=== PATIENT | female | born 1955 | race Caucasian/White ===

== ENCOUNTER → 2016-07-04 12:54 | Emergency (ER) | payer MEDICARE | END | disposition left against medical advice (07) | LOC: ED 12:54 | DX: Z91.81 History of falling (principal); Z53.21 Procedure and treatment not carried out due to patient leaving prior to being seen by health care provider ==

== ENCOUNTER 2016-07-04 15:50 | Emergency (ER) | payer MEDICARE ==
[2016-07-04 16:42] VITALS: BP 123/69
--- NOTE | 2016-07-04 18:12 | RAD ---
Indication: Back pain, hip pain. 5 views lumbar spine demonstrate vertebral bodies to be normal in height. Disc spaces all well-preserved. Pedicles appear intact. IMPRESSION: No fracture of lumbar spine is noted.
--- NOTE | 2016-07-04 18:13 | RAD ---
Indication: Right hip pain. 2 views of the right hip including an AP view the pelvis demonstrates pelvic ring to be intact. No fracture is identified. Joint spaces all well-preserved. IMPRESSION: No fracture of the right hip is present.
[2016-07-04] MEDS ORDERED: traMADol TAB* 50 MG PO ONE (18:35)
--- NOTE | 2016-08-01 20:56 | UC ---
Mynor Gonzalez Aidan, scribed for Cary Real MD on 07/04/16 at 1734 . Truncal Trauma HPI - HPI Summary HPI Summary: 61 y/o female presents to the Urgent Care with a complaint of acute, constant, mild (1/10) right buttock pain that resulted from a syncopal event that occurred on June 27 at 0200. On June 26, she had a procedure and was given [place], which she believes may have lowered her blood pressure. On July 01, she was evaluated and told she had a bruise. Since then, her buttock pain has gotten worse. Pt denies any tingling in the legs, hematochezia, or diarrhea, however, she had constipation when she was on [place] (though she no longer takes Dunstable). Lastly, she has not fallen since June 27. - History Of Current Complaint Chief Complaint: UCBackPain Stated Complaint: POSS TAILBONE INJURY Time Seen by Provider: 07/04/16 16:46 Hx Obtained From: Patient ?: No Onset/Duration: Sudden Onset, Lasting Days, Still Present Severity Initially: Mild Severity Currently: Mild Pain Intensity: 1 - pain has worsened since onset Pain Scale Used: 0-10 Numeric Mechanism Of Injury: Fall From A Standing Position Aggravating Factor(s): Nothing - unknown Alleviating factor(s): Nothing - unknown Associated Signs And Symptoms: Positive: Negative - Pt had constipation while On Dun[place], but does not currently - Allergies/Home Medications Allergies/Adverse Reactions: Allergies Allergy/AdvReac Type Severity Reaction Status Date / Time Iodinated Diagnostic Agents Allergy Mild Hives Verified 07/26/16 23:59 Iohexol [From Omnipaque] Allergy Mild Hives Verified 07/26/16 23:59 Clarithromycin [From Biaxin] AdvReac Intermediate TACHYCARDIC Verified 07/26/16 23:59 Hydrocodone AdvReac Intermediate See Comment Verified 07/26/16 23:59 Hydromorphone [From Dilaudid] AdvReac Intermediate low blood Verified 07/26/16 20:53 pressure Trazodone AdvReac Mild Dizziness Verified 07/26/16 23:59 PMH/Surg Hx/FS Hx/Imm Hx Endocrine History Of: Denies: Diabetes Cardiovascular History Of: Denies: Hypertension, Pacemaker/ICD Respiratory History Of: Denies: Asthma GI/ History Of: Denies: Renal Disease Psychological History Of: Reports: Anxiety, Depression Cancer History Of: Denies: Breast Cancer - Surgical History Surgical History: Yes Surgery Procedure, Year, and Place: ORTHOGNATHIC SURGERY [place], 1983, [place] TONSILECTOMY 1962, [facility] S[facility]A THERAPY, [place],(VARICOSE VEINS) 2007 ENDOMETRIAL BX, 2004 CERVICAL PERFERATION, [facility], HYSTERECTOMY- DUE TO ENDOMETRIAL CANCER. 03/01,CHEMO PORT PLACEMENT. 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 Lives: With Family Alcohol Use: None Substance Use Type: Prescribed Substance Use Comment - Amount & Last Used: xanax Smoking Status (MU): Never Smoked Tobacco Have You Smoked in the Last Year: No - Immunization History Most Recent Influenza Vaccination: 2013 Most Recent Tetanus Shot: unknown Most Recent Pneumonia Vaccination: never Review of Systems Constitutional: Negative Skin: Negative Eyes: Negative ENT: Negative Respiratory: Negative Cardiovascular: Negative Gastrointestinal: Negative Genitourinary: Negative Motor: Negative Neurovascular: Negative Musculoskeletal: Arthralgia - right buttock pain Neurological: Negative Psychological: Negative All Other Systems Reviewed And Are Negative: Yes Physical Exam Triage Information Reviewed: Yes Appearance: Well-Nourished Vital Signs: Initial Vital Signs Temp 97.4 F 07/04/16 16:36 Pulse 75 07/04/16 16:36 Resp 18 07/04/16 16:36 BP 123/69 07/04/16 16:36 Pulse Ox 99 07/04/16 16:36 Vital Signs Reviewed: Yes Eye Exam: Normal ENT Exam: Normal Neck exam: Normal Respiratory Exam: Normal, Other - no dyspnea or tachypnea Cardiovascular Exam: Normal Cardiovascular: Positive: Brisk Capillary Refill, Other: - heart rate regular, good general skin color Abdominal Exam: Normal Abdomen Description: Positive: Nontender, No Organomegaly, Soft Bowel Sounds: Positive: Present Musculoskeletal Exam: Normal Musculoskeletal: Positive: Strength Intact, Edema @ - mild bilateral pitting edema, Other: - pain over right ischium that extends mid posterior thigh, no bowl or bladder leak, no hematochezia, distal sensation light touch present, mild bilateral pitting edema, pulses DP/PT 2+ equal bilat., DTRs: Patellar Achilles 2-3+ equal, no clonus appreciated Neurological Exam: Normal, Other - grossly intact, nonfocal Psychological Exam: Normal, Other - responds appropriately and easily Skin Exam: Normal, Other - no visible or reported rash Diagnostics - Radiology RIGHT HIP X-RAY Xray Interpretation: No Acute Changes - IMPRESSION: no fracture of the right hip is appreciated Radiology Interpretation Completed By: Radiologist LUMBAR SPINE X-RAY Xray Interpretation: No Acute Changes - IMPRESSION: No fracture of the lumbar spine is noted. Radiology Interpretation Completed By: Radiologist Truncal Trauma Course/Dx - Course Course Of Treatment: No new problems in CCC. Reviewed s/sx and need for f/u. Likely combination of contusion, sciatica. Questions answered to the best of my ability. - Differential Dx/Diagnosis Provider Diagnoses: Contusion buttock. Sciatica Discharge - Discharge Plan Condition: Stable Disposition: HOME Patient Education Materials: Sciatica (ED), Contusion in Adults (ED) Referrals: Hallie Lara MD [Primary Care Provider] - Additional Instructions: Follow up with Dr. Gutierrze - call on Thursday to schedule an appointment for this week. Seek medical attention sooner for worse or new problems in the meantime. The documentation as recorded by the Mynor solis Aidan accurately reflects the service I personally performed and the decisions made by me, Cary Real MD.
== END 2016-07-04 18:54 | disposition home or self-care (01) ==
LOC: UCEAST 15:50
DX: S30.0XXA Contusion of lower back and pelvis, initial encounter (principal); X58.XXXA Exposure to other specified factors, initial encounter; Y93.9 Activity, unspecified; Y92.9 Unspecified place or not applicable; M54.31 Sciatica, right side; F41.9 Anxiety disorder, unspecified; F32.9 Major depressive disorder, single episode, unspecified; Z88.1 Allergy status to other antibiotic agents; Z88.5 Allergy status to narcotic agent; Z91.041 Radiographic dye allergy status
CPT/HCPCS: 72110; 99212; A9270-GY; G0463

== ENCOUNTER 2016-07-16 21:58 | Emergency (ER) | payer MEDICARE ==
--- NOTE | 2016-07-17 00:30 | ED ---
dillon Gonzalez Timothy, scribed for Vernon Ayers MD on 07/16/16 at 2314 . GI/ HPI - HPI Summary HPI Summary: Britta Almaraz is a 61 yo female presenting to [facility] with constipation and 2/10 abd pain. for the past 3 days. Her last BM was 3 days ago. She has self- medicated with stool softeners and enema with mild relief. She states the enema removed some hard, dry stool. She has a CT a/P scheduled for 07/17/16. She starts chemotherapy 07/18/16. Her MHx includes palpitations, powerport surgery, hysterectomy, arthritis, spinal cerebellar ataxia, uterine CA with radiation/ chemotherapy, lyme disease, panic disorder, depression. - History of Current Complaint Chief Complaint: EDAbdPain Time Seen by Provider: 07/16/16 23:11 Stated Complaint: CONSTIPATED Hx Obtained From: Patient Onset/Duration: Started Days Ago, Still Present Timing: Constant Severity: Moderate Current Severity: Moderate Pain Intensity: 2 Location of Pain: Diffuse Associated Signs and Symptoms: Positive: Constipation - Allergy/Home Medications Allergies/Adverse Reactions: Allergies Allergy/AdvReac Type Severity Reaction Status Date / Time Clarithromycin [From Biaxin] Allergy TACHYCARDIC Verified 07/16/16 23:10 Hydrocodone Allergy See Comment Verified 07/16/16 23:10 Iodinated Diagnostic Agents Allergy Hives Verified 07/16/16 23:10 Iohexol [From Omnipaque] Allergy Hives Verified 07/16/16 23:10 Trazodone Allergy Dizziness Verified 07/16/16 23:10 Hydromorphone [From Dilaudid] AdvReac Intermediate low blood Verified 07/16/16 23:10 pressure PMH/Surg Hx/FS Hx/Imm Hx Endocrine/Hematology History: Denies: Hx Diabetes Cardiovascular History: Denies: Hx Hypertension, Hx Pacemaker/ICD, Other Cardiovascular Problems/ Disorders Respiratory History: Denies: Hx Asthma, Other Respiratory Problems/Disorders GI History: Denies: Other GI Disorders History: Denies: Hx Dialysis, Hx Renal Disease Musculoskeletal History: Reports: Hx Arthritis - R Shoulder and R Hip, Hx Back Problems - Low Back, Other Musculoskeletal History - Spinal Cerebellar Ataxia Sensory History: Reports: Hx Contacts or Glasses Denies: Hx Hearing Aid Opthamlomology History: Reports: Hx Contacts or Glasses Psychiatric History: Reports: Hx Anxiety, Hx Depression, Hx Panic Disorder - will give her, Other Psychiatric Issues/Disorders - Claustrophobic - Cancer History Cancer Type, Location and Year: 2014 Uterine. 2016 Breast Hx Chemotherapy: Yes Hx Radiation Therapy: Yes - Surgical History Surgery Procedure, Year, and Place: ORTHOGNATHIC SURGERY [place], 1984, [place] [facility] 1963, [facility]Y, [place],(VARICOSE VEINS) 2007 ENDOMETRIAL BX, 2004 CERVICAL PERFERATION, [facility], HYSTERECTOMY- DUE TO ENDOMETRIAL CANCER. 03/01,CHEMO PORT PLACEMENT. 05/26/16 - US GUIDED BREAST BIOPSY - RIGHT FOLLOWED BY BIOPSY CLIP,lumpectomy,sentinal node biopsy.\ Hx Anesthesia Reactions: No Infectious Disease History: No Infectious Disease History: Denies: Traveled Outside the [place] in Last 30 Days - Family History Known Family History: Positive: Cardiac Disease, Hypertension Negative: Diabetes - Social History Alcohol Use: None Substance Use Type: Reports: Prescribed Substance Use Comment - Amount & Last Used: xanax Smoking Status (MU): Never Smoked Tobacco Have You Smoked in the Last Year: No Review of Systems Constitutional: Negative Eyes: Negative ENT: Negative Cardiovascular: Negative Respiratory: Negative Positive: Other - constipation Genitourinary: Negative Musculoskeletal: Negative Skin: Negative Neurological: Negative Psychological: Normal All Other Systems Reviewed And Are Negative: Yes Physical Exam Triage Information Reviewed: Yes Vital Signs On Initial Exam: Initial Vitals Temp Pulse Resp BP Pulse Ox 97.7 F 86 20 130/73 97 07/16/16 22:05 07/16/16 22:05 07/16/16 22:05 07/16/16 22:05 07/16/16 22:05 Vital Signs Reviewed: Yes Appearance: Positive: No Pain Distress, Thin Skin: Positive: Warm Head/Face: Positive: Normal Head/Face Inspection Eyes: Positive: MAYRA ENT: Positive: Hearing grossly normal Neck: Positive: Supple Respiratory/Lung Sounds: Positive: Breath Sounds Present Cardiovascular: Positive: RRR Abdomen Description: Positive: Nontender, Soft. Negative: Distended, Guarding Bowel Sounds: Positive: Present Musculoskeletal: Positive: Strength/ROM Intact Neurological: Positive: Alert, Oriented to Person Place, Time Psychiatric: Positive: Affect/Mood Appropriate - Jason Coma Scale Coma Scale Total: 15 Diagnostics - Vital Signs Vital Signs Temp Pulse Resp BP Pulse Ox 07/16/16 22:07 97.7 F 86 20 130/73 97 07/16/16 22:05 97.7 F 86 20 130/73 97 - Laboratory Lab Statement: Any lab studies that have been ordered have been reviewed, and results considered in the medical decision making process. - Radiology Abd Xray Interpretation: Positive (See Comments) - constipation Radiology Interpretation Completed By: ED Physician Re-Evaluation - Re-Evaluation First Eval Change: Improved - pt had good result after enema and mag citrate GIGU Course/Dx - Course Assessment/Plan: Britta Almaraz is a 61 yo female presenting to [facility] with constipation for the past 3-4 days, beginning chemotherapy 07/18/16. She has a CT A/P scheduled for tomorrow. In the Ed course she received magnesium citrate. Her abd XR suggests constipation. After clinical examination and review of her lab and imaging studies, she will be discharged home with constipation with appropriate instructions. - Diagnoses Differential Diagnoses - Female: Constipation Provider Diagnoses: Constipation Discharge - Discharge Plan Condition: Improved Disposition: HOME Patient Education Materials: Constipation (ED) Referrals: Hallie Lara MD [Primary Care Provider] - 2 Days Additional Instructions: Please follow up with your primary care physician regarding your visit to the emergency department today. Return to the emergency department with any new or recurring symptoms. The documentation as recorded by the dillon solis Timothy accurately reflects the service I personally performed and the decisions made by me, Vernon Ayers MD.
[2016-07-17] MEDS ORDERED: Magnesium CITRATE* 300 ML BTL PO ONE (00:32)
[2016-07-17 01:54] VITALS: BP 123/69
--- NOTE | 2016-07-17 07:36 | RAD ---
HISTORY: Constipation COMPARISONS: June 09, 2015 VIEWS: Frontal views of the abdomen. FINDINGS: BOWEL: There is a nonspecific bowel gas pattern, with nondilated small bowel gas noted. There is a large amount of stool within the colon. CALCULI: There are no abnormal calculi. BONES AND SOFT TISSUES: There are no osseous abnormalities. OTHER FINDINGS: The lung bases are clear. There is no subphrenic gas. IMPRESSION: NONSPECIFIC BOWEL GAS PATTERN.. LARGE AMOUNT OF STOOL THROUGHOUT THE COLON
== END 2016-07-17 01:52 | disposition home or self-care (01) ==
LOC: ED 21:58
DX: K59.00 Constipation, unspecified (principal); M19.011 Primary osteoarthritis, right shoulder; M16.11 Unilateral primary osteoarthritis, right hip; F41.9 Anxiety disorder, unspecified; F32.9 Major depressive disorder, single episode, unspecified; Z85.42 Personal history of malignant neoplasm of other parts of uterus; F41.0 Panic disorder [episodic paroxysmal anxiety]; Z85.3 Personal history of malignant neoplasm of breast; Z90.710 Acquired absence of both cervix and uterus; Z88.1 Allergy status to other antibiotic agents; Z88.5 Allergy status to narcotic agent; Z91.041 Radiographic dye allergy status
CPT/HCPCS: 74000; 99282; A9270-GY

== ENCOUNTER 2016-07-26 20:45 | Inpatient (IN) | payer MEDICARE ==
[2016-07-26] MEDS ORDERED: NS 0.9% 1000 ML* 2,000 ML IV ONE (20:55)
--- NOTE | 2016-07-26 22:00 | RAD ---
HISTORY: Fever, chemotherapy COMPARISONS: August 18, 2014 VIEWS: 2: Frontal and lateral views of the chest. FINDINGS: CARDIOMEDIASTINAL SILHOUETTE: The cardiomediastinal silhouette is normal. JANET: The janet are normal. PLEURA: The costophrenic angles are sharp. No pleural abnormalities are noted. LUNG PARENCHYMA: There is patchy alveolar opacification of the right lung base ABDOMEN: The upper abdomen is clear. There is no subphrenic gas. BONES AND SOFT TISSUES: No bone or soft tissue abnormalities are noted. OTHER: A right-sided chest port is noted with the tip overlying the superior vena cava IMPRESSION: MILD RIGHT BASILAR AIRSPACE DISEASE WHICH MAY REPRESENT ATELECTASIS VERSUS EARLY CONSOLIDATION
[2016-07-26 22:29] LABS: Hematocrit 33 % (35-47); Mean Corpuscular HGB Conc 34 g/dl (31-36); Mean Corpuscular Hemoglobin 31 pg (27-31); Mean Corpuscular Volume 93 fL (80-97); Mean Platelet Volume 8 um3 (7.4-10.4); Red Blood Count 3.53 10^6/ul (4.0-5.4); Red Cell Distribution Width 12 % (10.5-15); White Blood Count 0.5 10^3/ul (3.5-10.8)
[2016-07-26 22:34] LABS: Albumin 3.9 g/dL (3.2-5.2); BUN/Creatinine Ratio 13.3 (8-20); C Reactive Protein 30.46 mg/L (< 5.00); Calcium 9.4 mg/dL (8.6-10.3); EGFR African American 100.7 (>60); EGFR Non-African American 78.3 (>60); Globulin 2.5 g/dL (2-4); Potassium 3.6 mmol/L (3.5-5.0); Total Bilirubin 0.6 mg/dL (0.2-1.0); Total Protein 6.4 g/dL (6.4-8.9)
[2016-07-26 22:36] LABS: Add Diff/Slide Review? Manual Diff Added; Comments Flag Yes
[2016-07-26 22:37] LABS: Urine Bilirubin Negative (Negative); Urine Glucose Negative (Negative); Urine Nitrite Negative (Negative)
[2016-07-26] MEDS ORDERED: Acetaminophen TAB* 325 MG PO ONE (22:46)
[2016-07-26] MEDS ORDERED: Cefepime(*) 2 GM in NS 0.9% 50 ML* 50 ML IVPB ONE (22:46)
[2016-07-26 23:14] LABS: Add Path Review? YES; Eosinophils % 6 % (0-6); Immature Granulocytes 5 % (0-9); Neutrophil % 32 % (38-83); RBC Morphology Normal (Normal); Reactive Lymph % 1 % (0-6); Toxic Granulation 1+
--- NOTE | 2016-07-26 23:24 | HP ---
H&P (Free Text) History and Physical: PCP: Aditya Lara MD Oncology: Josefa Vila MD Date/Time of Evaluation: 07/26/2016 2305 CC: fever HPI: Mrs Almaraz is a 61YO female recently diagnosed with breast CA who had her first round of chemoTX a week ago last Thursday. The next day she received Neulasta. She was doing reasonably well until Thursday when she developed malaise in the morning lasting all day. She decided to check her temperature this evening finding it to be 101.8F. She called her oncologist's office who advised her to present to [facility] for evaluation the results of which revealed an ANC of 200 and a CXR suggesting an early RLL pneumonia. PMedHx spinocerebellar ataxia breast CA on TX HX endometrial CA Ambulatory Orders Nursing to reconcile. ALPRAZolam TAB* [Xanax TAB*] 0.25 mg PO TID PRN 08/17/14 Dihydroxyaluminum Sod Carb [Rolaids] 334 mg PO DAILY 01/15/15 Hypromellose (Ophth) [Systane Overnight Therapy] 0.3 % OP Q6HR PRN 01/15/15 Ibuprofen TAB* [Advil TAB*] 400 mg PO Q6H PRN 01/17/15 Allergies Clarithromycin [From Biaxin] Allergy (Verified 07/26/16 20:53) TACHYCARDIC Hydrocodone Allergy (Verified 07/26/16 20:53) See Comment lower blood pressure Iodinated Diagnostic Agents Allergy (Verified 07/26/16 20:53) Hives and heart palpitations Iohexol [From Omnipaque] Allergy (Verified 07/26/16 20:53) Hives AND PALPITATIONS Trazodone Allergy (Verified 07/26/16 20:53) Dizziness PT STATES "I JUST DON'T TOLERATE IT WELL" Hydromorphone [From Dilaudid] Adverse Reaction (Intermediate, Verified 07/26/16 20:53) low blood pressure PSurgHx tonsillectomy breast lumpectomy port placement hysterectomy w/ WICK SocHx: no tobacco, alcohol, or recreational drug HX; lives with her ; full code status FamHx: Mother: colon CA; Father: CAD ROS: as above, otherwise reviewed and all were negative Constitutional: NAD, normally developed, well-nourished white female vitals: Vital Signs Temp 38.7 C 07/26/16 21:13 Pulse 95 07/26/16 21:13 Resp 20 07/26/16 21:13 BP 116/59 07/26/16 21:13 Pulse Ox 99 07/26/16 21:13 Intake & Output 07/25/16 07/26/16 07/26/16 23:59 11:59 23:59 Weight 55.792 kg HEENM: atraumatic; chemoTX allopecia; sclera/conjunctiva: non-icteric/clear; hearing: clinically intact; oropharynx: clear, mucosa moist Neck: soft tissue: non-tender, no nuchal rigidity; thyroid: normal Pulmonary: clear to auscultation bilaterally, good aeration, no accessory muscle use CV: RR/RR, normal S1S2, no carotid bruit, no jugular venous distention, 2+ B DP/ PT, no edema Abdominal: soft, non-distended, non-tender, no rebound/guarding/rigidity, normoactive bowel sounds, no hepatosplenomegaly or masses, no costovertebral angle tenderness Musculoskeletal: general: grossly intact; gait: stable Integumental: normal appearance and texture Psychiatric orientation: AA&O to PPS affect: calm mood: pleasant eye contact: good content: reliable responses: timely insight: good Testing: Lab Results 07/26/16 07/26/16 07/26/16 Range/Units 22:00 22:00 22:00 WBC 0.5 L (3.5-10.8) 10^3/ul RBC 3.53 L (4.0-5.4) 10^6/ul Hgb 11.0 L (12.0-16.0) g/dl Hct 33 L (35-47) % MCV 93 (80-97) fL MCH 31 (27-31) pg MCHC 34 (31-36) g/dl RDW 12 (10.5-15) % Plt Count 94 L (150-450) 10^3/ul MPV 8 (7.4-10.4) um3 Immature Gran % (Auto) 5 (0-9) % Absolute Neuts (auto) 0.2 L* (1.5-7.7) 10^3/ul Absolute Lymphs (auto) 0.2 L (1.0-4.8) 10^3/ul Absolute Monos (auto) 0.1 (0-0.8) 10^3/ul Absolute Eos (auto) 0 (0-0.6) 10^3/ul Absolute Basos (auto) 0 (0-0.2) 10^3/ul Absolute Nucleated RBC 0 10^3/ul Neutrophils % 32 L (38-83) % Band Neutrophils % 5 (0-8) % Lymphocytes % 38 (25-47) % Reactive Lymphs % 1 (0-6) % Monocytes % 14 H (0-13) % Eosinophils % 6 (0-6) % Basophils % 4 H (0-2) % Toxic Granulation 1+ Normal RBC Morphology Normal (Normal) Hem Pathologist Commnt Pending INR (Anticoag Therapy) 1.02 (0.89-1.11) APTT 31.9 (26.0-36.3) seconds Sodium 134 (133-145) mmol/L Potassium 3.6 (3.5-5.0) mmol/L Chloride 103 (101-111) mmol/L Carbon Dioxide 25 (22-32) mmol/L Anion Gap 6 (2-11) mmol/L BUN 10 (6-24) mg/dL Creatinine 0.75 (0.51-0.95) mg/dL Est GFR ( Amer) 100.7 (>60) Est GFR (Non-Af Amer) 78.3 (>60) BUN/Creatinine Ratio 13.3 (8-20) Glucose 99 (70-100) mg/dL Lactic Acid (0.5-2.0) mmol/L Calcium 9.4 (8.6-10.3) mg/dL Total Bilirubin 0.60 (0.2-1.0) mg/dL AST 10 L (13-39) U/L ALT 9 (7-52) U/L Alkaline Phosphatase 69 (34-104) U/L Troponin I 0.00 (<0.04) ng/mL C-Reactive Protein 30.46 H (< 5.00) mg/L Total Protein 6.4 (6.4-8.9) g/dL Albumin 3.9 (3.2-5.2) g/dL Globulin 2.5 (2-4) g/dL Albumin/Globulin Ratio 1.6 (1-3) Urine Color Urine Appearance Urine pH (5-9) Ur Specific Chambers (1.010-1.030) Urine Protein (Negative) Urine Ketones (Negative) Urine Blood (Negative) Urine Nitrate (Negative) Urine Bilirubin (Negative) Urine Urobilinogen (Negative) Ur Leukocyte Esterase (Negative) Urine Glucose (Negative) 07/26/16 07/26/16 Range/Units 22:00 22:14 WBC (3.5-10.8) 10^3/ul RBC (4.0-5.4) 10^6/ul Hgb (12.0-16.0) g/dl Hct (35-47) % MCV (80-97) fL MCH (27-31) pg MCHC (31-36) g/dl RDW (10.5-15) % Plt Count (150-450) 10^3/ul MPV (7.4-10.4) um3 Immature Gran % (Auto) (0-9) % Absolute Neuts (auto) (1.5-7.7) 10^3/ul Absolute Lymphs (auto) (1.0-4.8) 10^3/ul Absolute Monos (auto) (0-0.8) 10^3/ul Absolute Eos (auto) (0-0.6) 10^3/ul Absolute Basos (auto) (0-0.2) 10^3/ul Absolute Nucleated RBC 10^3/ul Neutrophils % (38-83) % Band Neutrophils % (0-8) % Lymphocytes % (25-47) % Reactive Lymphs % (0-6) % Monocytes % (0-13) % Eosinophils % (0-6) % Basophils % (0-2) % Toxic Granulation Normal RBC Morphology (Normal) Hem Pathologist Commnt INR (Anticoag Therapy) (0.89-1.11) APTT (26.0-36.3) seconds Sodium (133-145) mmol/L Potassium (3.5-5.0) mmol/L Chloride (101-111) mmol/L Carbon Dioxide (22-32) mmol/L Anion Gap (2-11) mmol/L BUN (6-24) mg/dL Creatinine (0.51-0.95) mg/dL Est GFR ( Amer) (>60) Est GFR (Non-Af Amer) (>60) BUN/Creatinine Ratio (8-20) Glucose (70-100) mg/dL Lactic Acid 0.7 (0.5-2.0) mmol/L Calcium (8.6-10.3) mg/dL Total Bilirubin (0.2-1.0) mg/dL AST (13-39) U/L ALT (7-52) U/L Alkaline Phosphatase (34-104) U/L Troponin I (<0.04) ng/mL C-Reactive Protein (< 5.00) mg/L Total Protein (6.4-8.9) g/dL Albumin (3.2-5.2) g/dL Globulin (2-4) g/dL Albumin/Globulin Ratio (1-3) Urine Color Straw Urine Appearance Clear Urine pH 5.0 (5-9) Ur Specific Chambers 1.009 L (1.010-1.030) Urine Protein Negative (Negative) Urine Ketones Negative (Negative) Urine Blood Negative (Negative) Urine Nitrate Negative (Negative) Urine Bilirubin Negative (Negative) Urine Urobilinogen Negative (Negative) Ur Leukocyte Esterase Negative (Negative) Urine Glucose Negative (Negative) ECG, personally reviewed: NSR rate 100, T-wave inversions V1-3 with flattening in V4 CXR, personally reviewed: IMPRESSION: MILD RIGHT BASILAR AIRSPACE DISEASE WHICH MAY REPRESENT ATELECTASIS VERSUS EARLY CONSOLIDATION Impression: 61F HX presents with neutropenic fever w/ suspected source of RLL pneumonia DIAGNOSIS & PLAN Primary neutropenic fever : cefepime 2g IV Q8H : blood, sputum, & urine CXs : IVFs : neutropenic precautions : supportive care suspect RLL pneumonia : azithromycin IV for atypical coverage : supplemental oxygen Secondary breast CA on TX : continue management per oncology HX endometrial CA : no acute issues : HX hysterectomy w/ WICK Admission Rational: inpatient for neutropenic fever 2nd suspected RLL pneumonia in patient at high risk of mortality; inappropriate for outpatient setting DVTp: heparin SQ & SCDs Code Status: full HCP:
[2016-07-27] MEDS ORDERED: traMADol TAB* 50 MG PO PRN
[2016-07-27] MEDS ORDERED: CMCS: Melatonin (NF) 3 MG TAB PO PRN
[2016-07-27] MEDS ORDERED: Ondansetron INJ* 2 MG/ML VIAL IV PRN
[2016-07-27] MEDS: NS 0.9% 1000 ML* 1,000 ML IV SCH ×3 (01:10→18:02)
[2016-07-27] MEDS: Azithromycin IV(*) 500 MG in NS 0.9% 250 ML* 250 ML IVPB SCH (01:11)
--- NOTE | 2016-07-27 04:38 | ED ---
Cale Gonzalez Rebecca, scribed for Gabino Britton MD on 07/26/16 at 2145 . HPI Febrile Illness - HPI Summary HPI Summary: Pt is a 61 y/o F who presents to ED c/o fever and increased fatigue. 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 Sx aggravated and alleviated by nothing, has not taken any medication for the fever. Reports nausea and decreased appetite secondary to chemotherapy treatments. Denies abdominal pain, V, chills, myalgias, cough, rhinorrhea, sore throat and rashes. Denies pain around her port. Is not on any blood thinners. Currently has R breast CA and is undergoing chemotherapy, with her first treatment on the July, and the next on August 01. PSHx lumpectomy. Reports discussing current sx with Dr. Grimaldo today, who advised she be evaluated by the ED. - History of Current Complaint Chief Complaint: EDFever Hx Obtained From: Patient Onset/Duration: Started Hours Ago, Still Present Time of Onset: 18:00 Timing: Constant Temperature: 101.8 F - BATTERY CHECKER Current Severity: None Pain Intensity: 0 Pain Scale Used: 0-10 Numeric Aggravating Factors: Nothing Alleviating Factors: Nothing Associated Signs and Symptoms: Nausea, Other: - Increaed fatigue, decreased appetite - Allergy/Home Medications Allergies/Adverse Reactions: Allergies Allergy/AdvReac Type Severity Reaction Status Date / Time Iodinated Diagnostic Agents Allergy Mild Hives Verified 07/26/16 23:59 Iohexol [From Omnipaque] Allergy Mild Hives Verified 07/26/16 23:59 Clarithromycin [From Biaxin] AdvReac Intermediate TACHYCARDIC Verified 07/26/16 23:59 Hydrocodone AdvReac Intermediate See Comment Verified 07/26/16 23:59 Hydromorphone [From Dilaudid] AdvReac Intermediate low blood Verified 07/26/16 20:53 pressure Trazodone AdvReac Mild Dizziness Verified 07/26/16 23:59 PMH/Surg Hx/FS Hx/Imm Hx Endocrine/Hematology History: Denies: Hx Diabetes Cardiovascular History: Denies: Hx Hypertension, Hx Pacemaker/ICD, Other Cardiovascular Problems/ Disorders Respiratory History: Denies: Hx Asthma, Other Respiratory Problems/Disorders GI History: Denies: Other GI Disorders History: Denies: Hx Dialysis, Hx Renal Disease Musculoskeletal History: Reports: Hx Arthritis - R Shoulder and R Hip, Hx Back Problems - Low Back, Other Musculoskeletal History - Spinal Cerebellar Ataxia Sensory History: Reports: Hx Contacts or Glasses Denies: Hx Hearing Aid Opthamlomology History: Reports: Hx Contacts or Glasses Psychiatric History: Reports: Hx Anxiety, Hx Depression, Hx Panic Disorder - will give her, Other Psychiatric Issues/Disorders - Claustrophobic - Cancer History Cancer Type, Location and Year: 2014 Uterine. 2016 Breast Hx Chemotherapy: Yes - Current undergoing on chemotherapy Hx Radiation Therapy: Yes - Surgical History Surgery Procedure, Year, and Place: ORTHOGNATHIC SURGERY [place], 1983, [place] TONSILECTOMY 1962, [facility]A THERAPY, [place],(VARICOSE VEINS) 2007 ENDOMETRIAL BX, 2003 CERVICAL PERFERATION, [facility], HYSTERECTOMY- DUE TO ENDOMETRIAL CANCER. 03/01,CHEMO PORT PLACEMENT. 05/26/16 - US GUIDED BREAST BIOPSY - RIGHT FOLLOWED BY BIOPSY CLIP,lumpectomy,sentinal node biopsy.\\ Hx Anesthesia Reactions: No Infectious Disease History: No Infectious Disease History: Denies: Traveled Outside the [place] in Last 30 Days - Family History Known Family History: Positive: Cardiac Disease, Hypertension, Other - CA Negative: Diabetes - Social History Alcohol Use: None Substance Use Type: Reports: Prescribed Substance Use Comment - Amount & Last Used: xanax Smoking Status (MU): Never Smoked Tobacco Have You Smoked in the Last Year: No Review of Systems Positive: Fever, Fatigue, Other - Denies pain around port. Negative: Chills Negative: Sore Throat, Nasal Discharge Negative: Cough Positive: Nausea - secondary to chemotherapy. Negative: Abdominal Pain, Vomiting Negative: Myalgia Negative: Rash All Other Systems Reviewed And Are Negative: Yes Physical Exam - Summary Physical Exam Summary: The patient is well-nourished in no acute distress and in no acute pain. The skin is warm and dry and skin color reflects adequate perfusion. Good skin turgor. HEENT: The head is normocephalic and atraumatic. The pupils are equal and reactive. The conjunctivae are clear and without drainage. Nares are patent and without drainage. Mouth reveals moist mucous membranes and the throat is without erythema and exudate. The external ears are intact. The ear canals are patent and without drainage. The tympanic membranes are intact. Neck is supple with full range of motion and non-tender. There are no carotid bruits. There is no neck vein distension. Respiratory: Chest is non-tender. Lungs are clear to auscultation with no rales , ronchi or wheezing and breath sounds are symmetrical and equal. Cardiovascular: Hear is regular rate and rhythm. There is no murmur or rub auscultated. There is no peripheral edema and pulses are symmetrical and equal. Abdomen: The abdomen is soft and non-tender. There are normal bowel sounds heard in all four quadrants and there is no organomegaly palpated. Musculoskeletal: There is no back pain noted. Extremities are non-tender with full range of motion. There is good capillary refill of 2 seconds. There is no peripheral edema or calf tenderness elicited. Neurological: Patient is alert and oriented to person, place and time. The patient has symmetrical motor strength in all four extremities. Psychiatric: The patient has an appropriate affect and does not exhibit any anxiety or depression. Triage Information Reviewed: Yes Vital Signs On Initial Exam: Initial Vitals Temp Pulse Resp BP Pulse Ox 100.3 F 102 16 120/73 100 07/26/16 20:45 07/26/16 20:45 07/26/16 20:45 07/26/16 20:45 07/26/16 20:45 Vital Signs Reviewed: Yes Diagnostics - Vital Signs Vital Signs Temp Pulse Resp BP Pulse Ox 07/26/16 21:13 101.7 F 95 20 116/59 99 07/26/16 20:45 100.3 F 102 16 120/73 100 - Laboratory Lab Results: Lab Results 07/26/16 07/26/16 07/26/16 Range/Units 22:00 22:00 22:00 WBC 0.5 L (3.5-10.8) 10^3/ul RBC 3.53 L (4.0-5.4) 10^6/ul Hgb 11.0 L (12.0-16.0) g/dl Hct 33 L (35-47) % MCV 93 (80-97) fL MCH 31 (27-31) pg MCHC 34 (31-36) g/dl RDW 12 (10.5-15) % Plt Count 94 L (150-450) 10^3/ul MPV 8 (7.4-10.4) um3 Immature Gran % (Auto) 5 (0-9) % Absolute Neuts (auto) 0.2 L* (1.5-7.7) 10^3/ul Absolute Lymphs (auto) 0.2 L (1.0-4.8) 10^3/ul Absolute Monos (auto) 0.1 (0-0.8) 10^3/ul Absolute Eos (auto) 0 (0-0.6) 10^3/ul Absolute Basos (auto) 0 (0-0.2) 10^3/ul Absolute Nucleated RBC 0 10^3/ul Neutrophils % 32 L (38-83) % Band Neutrophils % 5 (0-8) % Lymphocytes % 38 (25-47) % Reactive Lymphs % 1 (0-6) % Monocytes % 14 H (0-13) % Eosinophils % 6 (0-6) % Basophils % 4 H (0-2) % Toxic Granulation 1+ Normal RBC Morphology Normal (Normal) Hem Pathologist Commnt Pending INR (Anticoag Therapy) 1.02 (0.89-1.11) APTT 31.9 (26.0-36.3) seconds Sodium 134 (133-145) mmol/L Potassium 3.6 (3.5-5.0) mmol/L Chloride 103 (101-111) mmol/L Carbon Dioxide 25 (22-32) mmol/L Anion Gap 6 (2-11) mmol/L BUN 10 (6-24) mg/dL Creatinine 0.75 (0.51-0.95) mg/dL Est GFR ( Amer) 100.7 (>60) Est GFR (Non-Af Amer) 78.3 (>60) BUN/Creatinine Ratio 13.3 (8-20) Glucose 99 (70-100) mg/dL Lactic Acid (0.5-2.0) mmol/L Calcium 9.4 (8.6-10.3) mg/dL Total Bilirubin 0.60 (0.2-1.0) mg/dL AST 10 L (13-39) U/L ALT 9 (7-52) U/L Alkaline Phosphatase 69 (34-104) U/L Troponin I 0.00 (<0.04) ng/mL C-Reactive Protein 30.46 H (< 5.00) mg/L Total Protein 6.4 (6.4-8.9) g/dL Albumin 3.9 (3.2-5.2) g/dL Globulin 2.5 (2-4) g/dL Albumin/Globulin Ratio 1.6 (1-3) Urine Color Urine Appearance Urine pH (5-9) Ur Specific [place] (1.010-1.030) Urine Protein (Negative) Urine Ketones (Negative) Urine Blood (Negative) Urine Nitrate (Negative) Urine Bilirubin (Negative) Urine Urobilinogen (Negative) Ur Leukocyte Esterase (Negative) Urine Glucose (Negative) 07/26/16 07/26/16 Range/Units 22:00 22:14 WBC (3.5-10.8) 10^3/ul RBC (4.0-5.4) 10^6/ul Hgb (12.0-16.0) g/dl Hct (35-47) % MCV (80-97) fL MCH (27-31) pg MCHC (31-36) g/dl RDW (10.5-15) % Plt Count (150-450) 10^3/ul MPV (7.4-10.4) um3 Immature Gran % (Auto) (0-9) % Absolute Neuts (auto) (1.5-7.7) 10^3/ul Absolute Lymphs (auto) (1.0-4.8) 10^3/ul Absolute Monos (auto) (0-0.8) 10^3/ul Absolute Eos (auto) (0-0.6) 10^3/ul Absolute Basos (auto) (0-0.2) 10^3/ul Absolute Nucleated RBC 10^3/ul Neutrophils % (38-83) % Band Neutrophils % (0-8) % Lymphocytes % (25-47) % Reactive Lymphs % (0-6) % Monocytes % (0-13) % Eosinophils % (0-6) % Basophils % (0-2) % Toxic Granulation Normal RBC Morphology (Normal) Hem Pathologist Commnt INR (Anticoag Therapy) (0.89-1.11) APTT (26.0-36.3) seconds Sodium (133-145) mmol/L Potassium (3.5-5.0) mmol/L Chloride (101-111) mmol/L Carbon Dioxide (22-32) mmol/L Anion Gap (2-11) mmol/L BUN (6-24) mg/dL Creatinine (0.51-0.95) mg/dL Est GFR ( Amer) (>60) Est GFR (Non-Af Amer) (>60) BUN/Creatinine Ratio (8-20) Glucose (70-100) mg/dL Lactic Acid 0.7 (0.5-2.0) mmol/L Calcium (8.6-10.3) mg/dL Total Bilirubin (0.2-1.0) mg/dL AST (13-39) U/L ALT (7-52) U/L Alkaline Phosphatase (34-104) U/L Troponin I (<0.04) ng/mL C-Reactive Protein (< 5.00) mg/L Total Protein (6.4-8.9) g/dL Albumin (3.2-5.2) g/dL Globulin (2-4) g/dL Albumin/Globulin Ratio (1-3) Urine Color Straw Urine Appearance Clear Urine pH 5.0 (5-9) Ur Specific [place] 1.009 L (1.010-1.030) Urine Protein Negative (Negative) Urine Ketones Negative (Negative) Urine Blood Negative (Negative) Urine Nitrate Negative (Negative) Urine Bilirubin Negative (Negative) Urine Urobilinogen Negative (Negative) Ur Leukocyte Esterase Negative (Negative) Urine Glucose Negative (Negative) Result Diagrams: 07/26/16 22:00 07/26/16 22:00 Lab Statement: Any lab studies that have been ordered have been reviewed, and results considered in the medical decision making process. - Radiology CXR Xray Interpretation: Positive (See Comments) - MILD RIGHT BASILAR AIRSPACE DISEASE WHICH MAY REPRESENT ATELECTASIS VERSUS EARLY CONSOLIDATION Radiology Interpretation Completed By: Radiologist - EKG 2302 Cardiac Rate: Tachycardia - 100 bpm EKG Rhythm: Sinus Tachycardia EKG Interpretation: T wave inversions in V1-V3 (new), no STEMI Re-Evaluation - Re-Evaluation First Eval Re-Evaluation Time: 22:50 Change: Unchanged Comment: Discussed current lab results and the plan with patient. Course/Dx - Course Assessment/Plan: Pt is a 61 y/o F who presents to ED c/o increased fatigue and fever which was 101.8 at home at 1800 tonight. Reports nausea and decreased appetite secondary to chemotherapy treatments. Denies abdominal pain, V, chills , myalgias, cough, rhinorrhea, sore throat and rashes. Denies pain around her port. Is not on any blood thinners. Currently has R breast CA and is undergoing chemotherapy. PSHx lumpectomy. CXR reveals "MILD RIGHT BASILAR AIRSPACE DISEASE WHICH MAY REPRESENT ATELECTASIS VERSUS EARLY CONSOLIDATION." EKG reveals sinus tachycardia with T wave inversions in V1-V3. Pt received Tylenol, Maxipime and Ns in the course of the ED. Discussed care of pt with Dr. Barragan ( hospitalist) who accepts pt for admission. Pt will be admitted with Dx of neutrpoenic sepsis. Critical care time of 30 minutes. - Febrile Illness Differential Diagnoses: Bacteremia, Fever of Unknown Origin, Pneumonia, Pyelonephritis, Other: - neutropenic sepsis - Diagnoses Provider Diagnoses: Neutropenic sepsis - Provider Notifications Discussed Care Of Patient With: Roderick Barragan Time Discussed With Above Provider: 22:53 Instructed by Provider To: Admit As Inpatient - Critical Care Time Critical Care Time: 30-74 min - 30 minutes Discharge - Discharge Plan Condition: Good Disposition: ADMITTED TO [facility] The documentation as recorded by the aCle solis Rebecca accurately reflects the service I personally performed and the decisions made by , Gabino Britton MD.
[2016-07-27] MEDS: Omeprazole CAP* 20 MG PO SCH ×2 (06:53→06:56)
[2016-07-27 06:56] LABS: Hematocrit 30 % (35-47); Mean Corpuscular HGB Conc 33 g/dl (31-36); Mean Corpuscular Hemoglobin 31 pg (27-31); Mean Corpuscular Volume 94 fL (80-97); Mean Platelet Volume 8 um3 (7.4-10.4); Red Blood Count 3.18 10^6/ul (4.0-5.4); Red Cell Distribution Width 12 % (10.5-15)
[2016-07-27 07:01] LABS: Comments Flag Yes
[2016-07-27 07:02] LABS: Add Diff/Slide Review? Slide Review Added
[2016-07-27] MEDS: Cefepime(*) 2 GM in NS 0.9% 50 ML* 50 ML IVPB SCH ×2 (08:03→16:04)
[2016-07-27] MEDS: Acetaminophen TAB* 325 MG PO PRN (08:12)
[2016-07-27] MEDS: Docusate CAP* 100 MG PO SCH ×2 (08:12→21:16)
[2016-07-27] MEDS: Bisacodyl EC TAB* 5 MG PO PRN (16:50)
[2016-07-28] MEDS: Cefepime(*) 2 GM in NS 0.9% 50 ML* 50 ML IVPB SCH ×3 (00:09→17:11)
[2016-07-28] MEDS: Azithromycin IV(*) 500 MG in NS 0.9% 250 ML* 250 ML IVPB SCH (01:20)
[2016-07-28] MEDS: Omeprazole CAP* 20 MG PO SCH (05:18)
[2016-07-28] MEDS ORDERED: Heparin VIAL(*) 5000 UNITS/ML VIAL (FIVE THOUSAND) SUBCUT SCH (06:00)
[2016-07-28 07:23] LABS: Calcium 9.3 mg/dL (8.6-10.3); EGFR African American 160.8 (>60); Potassium 3.7 mmol/L (3.5-5.0)
[2016-07-28] MEDS: Docusate CAP* 100 MG PO SCH ×2 (09:35→21:47)
[2016-07-28] MEDS: Bisacodyl EC TAB* 5 MG PO PRN (09:35)
[2016-07-28] MEDS: Acetaminophen TAB* 325 MG PO PRN (09:35)
[2016-07-28 11:15] LABS: Hematocrit 30 % (35-47); Mean Corpuscular HGB Conc 34 g/dl (31-36); Mean Corpuscular Hemoglobin 31 pg (27-31); Mean Corpuscular Volume 92 fL (80-97); Mean Platelet Volume 8 um3 (7.4-10.4); Red Blood Count 3.21 10^6/ul (4.0-5.4); Red Cell Distribution Width 12 % (10.5-15); White Blood Count 2.6 10^3/ul (3.5-10.8)
[2016-07-28 11:19] LABS: Comments Flag Yes
[2016-07-28 11:20] LABS: Add Diff/Slide Review? Manual Diff Added
[2016-07-28 11:52] LABS: Eosinophils % 1 % (0-6); Immature Granulocytes 7 % (0-9); Neutrophil % 61 % (38-83)
[2016-07-28 11:54] LABS: Reactive Lymph % 1 % (0-6)
[2016-07-28 11:55] LABS: Add Path Review? YES; RBC Morphology Normal (Normal)
[2016-07-28] MEDS: Heparin VIAL(*) 5000 UNITS/ML VIAL (FIVE THOUSAND) SUBCUT SCH ×2 (16:45→21:48)
[2016-07-28] MEDS: Polyethylene Glycol 3350* 17 GM PACKET PO PRN (17:11)
[2016-07-28] MEDS: NS 0.9% 1000 ML* 1,000 ML IV SCH (21:54)
[2016-07-29] MEDS: Cefepime(*) 2 GM in NS 0.9% 50 ML* 50 ML IVPB SCH ×3 (00:48→15:27)
[2016-07-29] MEDS: Acetaminophen TAB* 325 MG PO PRN (05:16)
[2016-07-29] MEDS: Heparin VIAL(*) 5000 UNITS/ML VIAL (FIVE THOUSAND) SUBCUT SCH ×2 (05:24→14:17)
[2016-07-29] MEDS: Omeprazole CAP* 20 MG PO SCH (05:24)
[2016-07-29 06:02] LABS: Hematocrit 28 % (35-47); Hemoglobin 9.4 g/dl (12.0-16.0); Mean Corpuscular HGB Conc 33 g/dl (31-36); Mean Corpuscular Hemoglobin 31 pg (27-31); Mean Corpuscular Volume 93 fL (80-97); Mean Platelet Volume 8 um3 (7.4-10.4); Red Blood Count 3.04 10^6/ul (4.0-5.4); Red Cell Distribution Width 12 % (10.5-15); White Blood Count 3.7 10^3/ul (3.5-10.8)
[2016-07-29 06:06] LABS: Add Diff/Slide Review? Manual Diff Added; Comments Flag Yes
[2016-07-29 06:25] LABS: Eosinophils % 1 % (0-6); Hypochromasia 1+; Immature Granulocytes 17 % (0-9); Metamyelocytes % 2 % (0-2); Myelocytes % 1 % (0-1); Neutrophil % 54 % (38-83); Promyelocytes % 1 %; Reactive Lymph % 1 % (0-6); Toxic Granulation 1+
[2016-07-29 06:26] LABS: Add Path Review? YES
[2016-07-29] MEDS: NS 0.9% 1000 ML* 1,000 ML IV SCH (06:29)
[2016-07-29] MEDS: Docusate CAP* 100 MG PO SCH (07:58)
[2016-07-29 10:22] VITALS: BP 98/46
[2016-07-29] MEDS: Polyethylene Glycol 3350* 17 GM PACKET PO PRN (15:28)
--- NOTE | 2016-07-29 15:28 | DS ---
CC: Dr. Lara * DISCHARGE SUMMARY: DATE OF ADMISSION: 07/26/16 DATE OF DISCHARGE: 07/29/16 DISCHARGE DIAGNOSES: 1. Neutropenic fever: Resolved, will discontinue off antibiotics as no growth in cultures. 2. Breast cancer: Will resume therapy on 08/01/16, consideration for dose reduction pending, continue Neulasta. 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 DISCHARGE MEDICATIONS: 1. Acetaminophen 650 mg p.o. q.6 hours p.r.n. fever/pain, call for fevers prior to taking. 2. Emend Tri-Pack as directed for chemotherapy. 3. Dulcolax 10 mg p.o. daily p.r.n. constipation. 4. Dexamethasone 4 mg p.o. as directed by chemo. 5. Docusate sodium mg p.o. b.i.d. 6. Melatonin 3 mg p.o. q.h.s. p.r.n. sleep. 7. Omeprazole 20 mg p.o. q.a.m. 8. Ondansetron 4 mg p.o. q.6 hours p.r.n. nausea. 9. MiraLax 17 g p.o. daily p.r.n. constipation. 10. Compazine 10 mg p.o. q.6 hours p.r.n. nausea. 11. Alprazolam 0.25 mg p.o. t.i.d. p.r.n. anxiety. 12. Rolaids 334 mg p.o. daily p.r.n. indigestion. 13. Hypromellose 0.3% ophthalmic overnight p.r.n. dry eyes. 14. Ibuprofen 400 mg p.o. q.6 hours p.r.n. pain. HOSPITAL COURSE: Please see admission note for full H and P; however, briefly, Ms. Almaraz is well known to our service due to her prior diagnosis of carcinosarcoma uterine cancer, completing therapy in 2013. She was recently diagnosed with a new lobular breast cancer and is started on dose dense AC2T. Cycle 1 day 1 was 07/18/16. She presented to the ER in the evening of 07/26/16 (day 8) as directed by the on-call oncologist due to a fever of 101.8 and malaise all day. In the ER, she had an ANC of 200 and the chest x-ray suggested an early right lower lobe pneumonia. On admission, she was given IV cefepime and pancultured. Within approximately 24 hour, Ms. Almaraz defervesced with no further fevers. By today, she is feeling much stronger and a lot better. Her ANC resolved by 07/28/16 to 1.8. She is mildly anemic with a normal platelet count at this time. Her cultures today have all been negative and she will be discharged following completion of her third day of IV antibiotics this afternoon. She will be discharged off antibiotics and will follow up in our office on 08/01/16, as previously planned for chemotherapy. Plan of care was discussed at length with Ms. Almaraz who states good understanding and denies further questions. Dr. Vila, her primary oncologist, is considering dose reduction. However, we will determine as we get closer to the date of treatment. Ms. Almaraz states understanding of plan for resumption with cycle 2 and continuing Neulasta. She denies further questions. TIME SPENT: Greater than 40 minutes spent with greater than 50% [id number] counseling. DRE BRYANT NP [id number]/[facility] #: [id number] MAGGIE
== END 2016-07-29 19:00 | disposition home or self-care (01) | DRG 194 ==
LOC: ED 20:45 → MED 22:52
PROVIDERS: ADMIT Hospitalist; ATTEND Internal Medicine Hematology & Oncology
DX: J18.9 Pneumonia, unspecified organism (principal); G11.1 Early-onset cerebellar ataxia; D70.9 Neutropenia, unspecified; C50.919 Malignant neoplasm of unspecified site of unspecified female breast; R50.81 Fever presenting with conditions classified elsewhere; Z85.42 Personal history of malignant neoplasm of other parts of uterus; Z79.1 Long term (current) use of non-steroidal anti-inflammatories (NSAID); Z79.899 Other long term (current) drug therapy; Z88.8 Allergy status to other drugs, medicaments and biological substances; Z80.0 Family history of malignant neoplasm of digestive organs; Z82.49 Family history of ischemic heart disease and other diseases of the circulatory system
CPT/HCPCS: 36415; 71020; 80048; 80053; 81003; 83605; 84484; 85025; 85060; 85610; 85730; 86140; 87040; 87899; 93005; 99232; 99239; A9270-GY; J0456; J0692; J1642; J1644

== ENCOUNTER 2016-11-27 17:42 | Emergency (ER) | payer MEDICARE ==
[2016-11-27 20:37] LABS: Hematocrit 33 % (35-47); Hemoglobin 11.5 g/dl (12.0-16.0); Mean Corpuscular HGB Conc 35 g/dl (31-36); Mean Corpuscular Hemoglobin 33 pg (27-31); Mean Corpuscular Volume 94 fL (80-97); Mean Platelet Volume 7 um3 (7.4-10.4); Red Blood Count 3.54 10^6/ul (4.0-5.4); Red Cell Distribution Width 13 % (10.5-15); White Blood Count 8.4 10^3/ul (3.5-10.8)
[2016-11-27 20:48] LABS: Albumin 3.8 g/dL (3.2-5.2); Calcium 9.2 mg/dL (8.6-10.3); EGFR African American 118.8 (>60); EGFR Non-African American 92.4 (>60); Globulin 2.2 g/dL (2-4); Potassium 3.8 mmol/L (3.5-5.0); Total Bilirubin 0.5 mg/dL (0.2-1.0)
--- NOTE | 2016-11-27 20:54 | RAD ---
Indication: Cough. Fever. Oncology patient. Comparison: No relevant prior exams available on the [facility] [place] [place] PACS for comparison. Technique: Upright AP 1815 hours Report: Probable surgical clips at the RIGHT breast. Clear lungs and pleural spaces. The heart, pulmonary vasculature, and mediastinal contours are unremarkable. No suspicious osseous lesions evident. IMPRESSION: No evidence for pneumonia. No evidence for mediastinal or hilar lymphadenopathy. No evidence for acute intrathoracic disease.
[2016-11-27 21:47] VITALS: BP 105/64
--- NOTE | 2016-11-28 22:04 | ED ---
Bj Gonzalez Angela, scribed for Olivia Norris MD on 11/27/16 at 1930 . Shortness of Breath - HPI Summary HPI Summary: This pt is a 61 y/o female accompanied by her [facility]/o [facility], scratchy throat, laryngitis since last night. Pt reports that she has breast CA and finished chemotherapy in September 2016. She notes that she had lumpectomy margins cleaned up and had her port removed yesterday. She states that her cough is aggravated when laying down. Pt describes she had productive cough with phlegm. Pt denies using tobacco, drug, or alcohol. She denies blurry vision, chest pain , SOB, ear ache, abd pain, back pain, bloody stools, hematuria, unexplained bruises or rash. - History of Current Complaint Chief Complaint: EDShortnessOfBreath Time Seen by Provider: 11/27/16 19:18 Hx Obtained From: Patient Onset/Duration: Lasting Hours Timing: Constant Aggrevating Factors: Recumbent Position Alleviating Factors: Upright Position Associated Signs & Symptoms: Cough (Productive) - Allergy/Home Medications Allergies/Adverse Reactions: Allergies Allergy/AdvReac Type Severity Reaction Status Date / Time Iodinated Diagnostic Agents Allergy Mild Hives Verified 07/26/16 23:59 Iohexol [From Omnipaque] Allergy Mild Hives Verified 07/26/16 23:59 Clarithromycin [From Biaxin] AdvReac Intermediate TACHYCARDIC Verified 07/26/16 23:59 Hydrocodone AdvReac Intermediate See Comment Verified 07/26/16 23:59 Hydromorphone [From Dilaudid] AdvReac Intermediate low blood Verified 07/26/16 20:53 pressure Trazodone AdvReac Mild Dizziness Verified 07/26/16 23:59 PMH/Surg Hx/FS Hx/Imm Hx Endocrine/Hematology History: Denies: Hx Diabetes Cardiovascular History: Denies: Hx Hypertension, Hx Pacemaker/ICD, Other Cardiovascular Problems/ Disorders Respiratory History: Denies: Hx Asthma, Other Respiratory Problems/Disorders GI History: Denies: Other GI Disorders History: Denies: Hx Dialysis, Hx Renal Disease Musculoskeletal History: Reports: Hx Arthritis - R Shoulder and R Hip, Hx Back Problems - Low Back, Other Musculoskeletal History - Spinal Cerebellar Ataxia Sensory History: Reports: Hx Contacts or Glasses Denies: Hx Hearing Aid Opthamlomology History: Reports: Hx Contacts or Glasses Psychiatric History: Reports: Hx Anxiety, Hx Depression, Hx Panic Disorder - will give her, Other Psychiatric Issues/Disorders - Claustrophobic - Cancer History Cancer Type, Location and Year: 2014 Uterine. 2017 Breast Hx Chemotherapy: Yes - Current undergoing on chemotherapy Hx Radiation Therapy: Yes - Surgical History Surgery Procedure, Year, and Place: ORTHOGNATHIC SURGERY [place], 1983, [place] TONSILECTOMY 1963, [facility] SCL[facility]A THERAPY, [place],(VARICOSE VEINS) 2007 ENDOMETRIAL BX, 2004 CERVICAL PERFERATION, [facility], HYSTERECTOMY- DUE TO ENDOMETRIAL CANCER. 03/01,CHEMO PORT PLACEMENT. 05/26/16 - US GUIDED BREAST BIOPSY - RIGHT FOLLOWED BY BIOPSY CLIP,lumpectomy,sentinal node biopsy.\ Hx Anesthesia Reactions: No Infectious Disease History: No Infectious Disease History: Denies: Traveled Outside the [place] in Last 30 Days - Family History Known Family History: Positive: Cardiac Disease, Hypertension, Other - CA Negative: Diabetes - Social History Alcohol Use: None Substance Use Type: Reports: Prescribed Substance Use Comment - Amount & Last Used: xanax Smoking Status (MU): Never Smoked Tobacco Have You Smoked in the Last Year: No Review of Systems Negative: Fever, Chills Negative: Blurred Vision Positive: Other - scratchy throat. Negative: Ear Ache Negative: Chest Pain Positive: Cough. Negative: Shortness Of Breath Negative: Abdominal Pain Genitourinary: Negative Negative: hematuria, other - bloody stools Negative: Rash, Bruising All Other Systems Reviewed And Are Negative: Yes Physical Exam Triage Information Reviewed: Yes Vital Signs On Initial Exam: Initial Vitals Temp Pulse Resp BP Pulse Ox 98.6 F 99 19 119/63 99 11/27/16 17:52 11/27/16 17:52 11/27/16 17:52 11/27/16 17:52 11/27/16 17:52 Vital Signs Reviewed: Yes Appearance: Positive: Well-Nourished Skin: Positive: Warm, Skin Color Reflects Adequate Perfusion, Dry, Other - The port was on the right infraclavicular area, there is no erythema, no drainage. To the right inferior lateral breast there is a surgical incision with mild ecchymosis. Wound is intact, not dehisced, not red, and not warm. Head/Face: Positive: Other - Pt has a cap on and has alopecia. ENT: Positive: Pharynx normal, TMs normal Neck: Positive: Supple, Nontender Respiratory/Lung Sounds: Positive: Clear to Auscultation, Breath Sounds Present Cardiovascular: Positive: Normal, RRR Abdomen Description: Positive: Nontender, Soft Musculoskeletal: Positive: Normal Neurological: Positive: Normal, Sensory/Motor Intact, Alert, Oriented to Person Place, Time Psychiatric: Positive: Normal Diagnostics - Vital Signs Vital Signs Temp Pulse Resp BP Pulse Ox 11/27/16 17:52 98.6 F 99 19 119/63 99 - Laboratory Lab Results: Lab Results 11/27/16 11/27/16 Range/Units 20:14 20:14 WBC 8.4 (3.5-10.8) 10^3/ul RBC 3.54 L (4.0-5.4) 10^6/ul Hgb 11.5 L (12.0-16.0) g/dl Hct 33 L (35-47) % MCV 94 (80-97) fL MCH 33 H (27-31) pg MCHC 35 (31-36) g/dl RDW 13 (10.5-15) % Plt Count 152 (150-450) 10^3/ul MPV 7 L (7.4-10.4) um3 Neut % (Auto) 88.9 H (38-83) % Lymph % (Auto) 5.2 L (25-47) % [place] % (Auto) 5.0 (1-9) % Eos % (Auto) 0.4 (0-6) % Baso % (Auto) 0.5 (0-2) % Absolute Neuts (auto) 7.5 (1.5-7.7) 10^3/ul Absolute Lymphs (auto) 0.4 L (1.0-4.8) 10^3/ul Absolute Monos (auto) 0.4 (0-0.8) 10^3/ul Absolute Eos (auto) 0 (0-0.6) 10^3/ul Absolute Basos (auto) 0 (0-0.2) 10^3/ul Absolute Nucleated RBC 0 10^3/ul Nucleated RBC % 0 Sodium 139 (133-145) mmol/L Potassium 3.8 (3.5-5.0) mmol/L Chloride 109 (101-111) mmol/L Carbon Dioxide 25 (22-32) mmol/L Anion Gap 5 (2-11) mmol/L BUN 13 (6-24) mg/dL Creatinine 0.65 (0.51-0.95) mg/dL Est GFR ( Amer) 118.8 (>60) Est GFR (Non-Af Amer) 92.4 (>60) BUN/Creatinine Ratio 20.0 (8-20) Glucose 97 (70-100) mg/dL Calcium 9.2 (8.6-10.3) mg/dL Total Bilirubin 0.50 (0.2-1.0) mg/dL AST 14 (13-39) U/L ALT 10 (7-52) U/L Alkaline Phosphatase 80 (34-104) U/L Total Protein 6.0 L (6.4-8.9) g/dL Albumin 3.8 (3.2-5.2) g/dL Globulin 2.2 (2-4) g/dL Albumin/Globulin Ratio 1.7 (1-3) Result Diagrams: 11/27/16 20:14 11/27/16 20:14 Lab Statement: Any lab studies that have been ordered have been reviewed, and results considered in the medical decision making process. - Radiology Chest XR Xray Interpretation: No Acute Changes - IMPRESSION: No evidence for pneumonia. No evidence for mediastinal or hilar lymphadenopathy. No evidence for acute intrathoracic disease. ED physician has reviewed this radiology report and agrees. Radiology Interpretation Completed By: Radiologist Re-Evaluation - Re-Evaluation First Eval Re-Evaluation Time: 21:15 Comment: I reviewed lab and XR results with the pt and . Course/Dx - Course Assessment/Plan: Pt is a 61 y/o female with breast CA (finished chemo on September 2016) presenting with cough, scratchy throat, laryngitis since last night. She notes that she had lumpectomy margins cleaned up and had her port removed yesterday. Lab work shows slight anemia. Chesmistry is good. Chest XR is negative. Pt will be discharged and is advised to follow up with her PCP. - Diagnoses Provider Diagnoses: Upper respiratory infection Discharge - Discharge Plan Condition: Stable Disposition: HOME Patient Education Materials: Upper Respiratory Infection (ED) Referrals: Hallie Lara MD [Primary Care Provider] - Additional Instructions: resume normal activity. It is important to follow up with your primary care physician in 2-3 days. take all medications as previously instructed. The documentation as recorded by the Bj solis Angela accurately reflects the service I personally performed and the decisions made by me, Olivia Norris MD.
== END 2016-11-27 21:46 | disposition home or self-care (01) ==
LOC: ED 17:42
DX: J06.9 Acute upper respiratory infection, unspecified (principal); C50.511 Malignant neoplasm of lower-outer quadrant of right female breast; M19.011 Primary osteoarthritis, right shoulder; M16.11 Unilateral primary osteoarthritis, right hip; G11.9 Hereditary ataxia, unspecified; F41.0 Panic disorder [episodic paroxysmal anxiety]; F32.9 Major depressive disorder, single episode, unspecified; F40.240 Claustrophobia; Z88.5 Allergy status to narcotic agent; Z88.1 Allergy status to other antibiotic agents; Z91.041 Radiographic dye allergy status
CPT/HCPCS: 36415; 71010; 80053; 85025; 99282

== ENCOUNTER → 2017-01-18 15:43 | Emergency (ER) | payer MEDICARE ==
[~2017-01-18 15:43] MED LIST: DOXYcycline CAP(*) 100 MG PO ONE
[2017-01-18 15:51] VITALS: BP 125/69
--- NOTE | 2017-01-18 15:55 | ED ---
Upper Extremity Pain - HPI Summary HPI Summary: 61F presents with tick bite on right arm. She noticed it today and it has probably been there since yesterday. She denies any fevers or rash. She did not try to take it out. She is currently taking chemo for breast CA. she is not allergic to doxycycline. - History of Current Complaint Chief Complaint: EDAnimalBite Stated Complaint: TICK ON RT ARM Time Seen by Provider: 01/18/17 15:52 - Allergies/Home Medications Allergies/Adverse Reactions: Allergies Allergy/AdvReac Type Severity Reaction Status Date / Time Iodinated Diagnostic Agents Allergy Mild Hives Verified 07/26/16 23:59 Iohexol [From Omnipaque] Allergy Mild Hives Verified 07/26/16 23:59 Clarithromycin [From Biaxin] AdvReac Intermediate TACHYCARDIC Verified 07/26/16 23:59 Hydrocodone AdvReac Intermediate See Comment Verified 07/26/16 23:59 Hydromorphone [From Dilaudid] AdvReac Intermediate low blood Verified 07/26/16 20:53 pressure Trazodone AdvReac Mild Dizziness Verified 07/26/16 23:59 PMH/Surg Hx/FS Hx/Imm Hx Endocrine/Hematology History: Denies: Hx Diabetes Cardiovascular History: Denies: Hx Hypertension, Hx Pacemaker/ICD, Other Cardiovascular Problems/ Disorders Respiratory History: Denies: Hx Asthma, Other Respiratory Problems/Disorders GI History: Denies: Other GI Disorders History: Denies: Hx Dialysis, Hx Renal Disease Musculoskeletal History: Reports: Hx Arthritis - R Shoulder and R Hip, Hx Back Problems - Low Back, Other Musculoskeletal History - Spinal Cerebellar Ataxia Sensory History: Reports: Hx Contacts or Glasses Denies: Hx Hearing Aid Opthamlomology History: Reports: Hx Contacts or Glasses Psychiatric History: Reports: Hx Anxiety, Hx Depression, Hx Panic Disorder - will give her, Other Psychiatric Issues/Disorders - Claustrophobic - Cancer History Cancer Type, Location and Year: 2014 Uterine. 2016 Breast Hx Chemotherapy: Yes - Current undergoing on chemotherapy Hx Radiation Therapy: Yes - Surgical History Surgery Procedure, Year, and Place: ORTHOGNATHIC SURGERY [place], 1983, [place] TONSILECTOMY 1962, [facility] [facility], [place],(VARICOSE VEINS) 2007 ENDOMETRIAL BX, 2004 CERVICAL PERFERATION, [facility], HYSTERECTOMY- DUE TO ENDOMETRIAL CANCER. 03/01,CHEMO PORT PLACEMENT. 05/26/16 - US GUIDED BREAST BIOPSY - RIGHT FOLLOWED BY BIOPSY CLIP,lumpectomy,sentinal node biopsy.\ Hx Anesthesia Reactions: No Infectious Disease History: No Infectious Disease History: Denies: Traveled Outside the [place] in Last 30 Days - Family History Known Family History: Positive: Cardiac Disease, Hypertension, Other - CA Negative: Diabetes - Social History Alcohol Use: None Substance Use Type: Reports: Prescribed Substance Use Comment - Amount & Last Used: xanax Smoking Status (MU): Never Smoked Tobacco Have You Smoked in the Last Year: No Review of Systems Negative: Fever Negative: Chest Pain Negative: Shortness Of Breath Positive: Other - tick bite right arm All Other Systems Reviewed And Are Negative: Yes Physical Exam Triage Information Reviewed: Yes Vital Signs On Initial Exam: Initial Vitals Temp Pulse Resp BP Pulse Ox 97.7 F 87 16 125/69 99 01/18/17 15:49 01/18/17 15:49 01/18/17 15:49 01/18/17 15:49 01/18/17 15:49 Vital Signs Reviewed: Yes Appearance: Positive: Well-Appearing Skin: Positive: Warm, Dry, Other - tick bite on right arm Head/Face: Positive: Normal Head/Face Inspection Eyes: Positive: Normal, Conjunctiva Clear Respiratory/Lung Sounds: Positive: Clear to Auscultation, Breath Sounds Present Cardiovascular: Positive: Normal, RRR Musculoskeletal: Positive: Normal Neurological: Positive: Normal Psychiatric: Positive: Normal Diagnostics - Vital Signs Vital Signs Temp Pulse Resp BP Pulse Ox 01/18/17 15:49 97.7 F 87 16 125/69 99 - Laboratory Lab Statement: Any lab studies that have been ordered have been reviewed, and results considered in the medical decision making process. Course/Dx - Course Course Of Treatment: 61F presents with tick bite on right arm. She noticed it today and it has probably been there since yesterday. She denies any fevers or rash. She did not try to take it out. She is currently taking chemo for breast CA. she is not allergic to doxycycline. on exam right tick present which removed with tweezers. gave dose of doxcycline. patient understand and agrees with plan. - Diagnoses Differential Diagnosis/HQI/PQRI: Positive: Other - tick bite, lyme Provider Diagnoses: Tick bite Discharge - Discharge Plan Condition: Good Disposition: HOME Patient Education Materials: Tick Bite (ED) Referrals: Hallie Lara MD [Primary Care Provider] - Additional Instructions: You have been prophylactically treated for Lyme disease Return to ED if develop any rash or signs of infection
== END | disposition home or self-care (01) ==
LOC: ED 15:43
DX: S40.861A Insect bite (nonvenomous) of right upper arm, initial encounter (principal); C50.919 Malignant neoplasm of unspecified site of unspecified female breast; Z51.11 Encounter for antineoplastic chemotherapy; W57.XXXA Bitten or stung by nonvenomous insect and other nonvenomous arthropods, initial encounter; Y93.9 Activity, unspecified; Y92.89 Other specified places as the place of occurrence of the external cause
CPT/HCPCS: 99281; A9270-GY

== ENCOUNTER 2020-02-09 17:14 | Inpatient (IN) ==
[2020-02-09] MEDS ORDERED: NS 0.9% 1000 ml BAG 1,000 ML IV ONE (17:36)
[2020-02-09] MEDS ORDERED: Ondansetron 4 mg VIAL 2 MG/ML 2 ml VIAL IV ONE (17:36)
[2020-02-09 17:53] LABS: ABS Lymphocytes 1.1 10^3/ul (1.0-4.8); ABS Monocytes 0.5 10^3/ul (0-0.8); ABS Neutrophils 5.3 10^3/ul (1.5-7.7); Eosinophil % 0.2 %; Hematocrit 39 % (35-47); Lymphocyte % 15.9 %; Mean Corpuscular HGB Conc 34 g/dL (31-36); Mean Corpuscular Hemoglobin 32 pg (27-31); Mean Corpuscular Volume 95 fL (80-97); Mean Platelet Volume 7.2 fL (7.4-10.4); Platelet Count 241 10^3/uL (150-450); Red Blood Count 4.04 10^6 /uL (3.70-4.87); Red Cell Distribution Width 13 % (10-15); White Blood Count 6.9 10^3/uL (3.5-10.8)
[2020-02-09 18:11] LABS: ALT 14 U/L (7-52); AST 19 U/L (13-39); Albumin 4.5 g/dL (3.2-5.2); Albumin/Globulin Ratio 1.7 (1-3); Alkaline Phosphatase 58 U/L (34-104); Anion Gap 5 mmol/L (2-11); BUN/Creatinine Ratio 21.6 (8-20); Blood Urea Nitrogen 16 mg/dL (6-24); CO2 Carbon Dioxide 27 mmol/L (22-32); Calcium 10.1 mg/dL (8.6-10.3); Chloride 108 mmol/L (101-111); EGFR African American 95.3 (>60); EGFR Non-African American 78.8 (>60); Globulin 2.7 g/dL (2-4); Glucose 139 mg/dL (70-100); Magnesium 2.1 mg/dL (1.9-2.7); Potassium 3.6 mmol/L (3.5-5.0); Sodium 140 mmol/L (135-145); Total Protein 7.2 g/dL (6.4-8.9)
[2020-02-09 18:39] LABS: Alcohol, S < 10 mg/dL (<10)
[2020-02-09] MEDS ORDERED: levETIRAcetam 1000MG IVPREMIX 1,000 MG/100 ML BAG IVPB ONE (18:59)
[2020-02-09 20:03] LABS: Activated Partial Thrombo Time 29.4 seconds (26.0-38.0); INR 0.99 (0.82-1.09)
[2020-02-09] MEDS ORDERED: hydrALAZINE 20 mg/ml 1 ML Vial IV IV SLOW PU PRN (21:22)
[2020-02-10] MEDS: NS 0.9% 1000 ml BAG 1,000 ML IV SCH ×2 (02:40→13:16)
[2020-02-10 03:22] LABS: Urine Appearance Cloudy; Urine Bilirubin Negative (Negative); Urine Blood Negative (Negative); Urine Color Yellow; Urine Glucose Negative (Negative); Urine Ketones Negative (Negative); Urine Nitrite Negative (Negative); Urine Protein Negative (Negative); Urine Specific Gravity 1.019 (1.010-1.030); Urine Urobilinogen Negative (Negative)
[2020-02-10] MEDS: Acetaminophen IV 1000 MG/100ML IVPB SCH ×3 (03:22→18:04)
[2020-02-10 05:34] LABS: ABS Lymphocytes 1.2 10^3/ul (1.0-4.8); ABS Monocytes 0.6 10^3/ul (0-0.8); ABS Neutrophils 4.4 10^3/ul (1.5-7.7); Eosinophil % 0.6 %; Hematocrit 34 % (35-47); Hemoglobin 11.3 g/dL (12.0-16.0); Lymphocyte % 19.7 %; Mean Corpuscular HGB Conc 34 g/dL (31-36); Mean Corpuscular Hemoglobin 32 pg (27-31); Mean Corpuscular Volume 96 fL (80-97); Mean Platelet Volume 7.1 fL (7.4-10.4); Platelet Count 187 10^3/uL (150-450); Red Cell Distribution Width 13 % (10-15); White Blood Count 6.3 10^3/uL (3.5-10.8)
[2020-02-10 05:50] LABS: BUN/Creatinine Ratio 15.3 (8-20); Calcium 9.3 mg/dL (8.6-10.3); EGFR African American 98.4 (>60); EGFR Non-African American 81.3 (>60)
[2020-02-10 06:12] LABS: INR 1.07 (0.82-1.09)
[2020-02-10] MEDS ORDERED: ceFAZolin 1 GM ADVAN 1 GM in NS 0.9% 50 ML 50 ML IVPB ONE (09:00)
[2020-02-10] MEDS ORDERED: Phenylephrine IV 10 MG/ML 1 ml VIAL ONE (10:20)
[2020-02-10] MEDS ORDERED: Sodium Chloride 0.9% 10 ML ONE ×2 (10:20→15:36)
[2020-02-10] MEDS ORDERED: Ondansetron 4 mg VIAL 2 MG/ML 2 ml VIAL ONE (10:20)
[2020-02-10] MEDS ORDERED: fentaNYL 100 mcg/2 ml 50 MCG/ML VIAL ONE ×2 (10:20→17:36)
[2020-02-10] MEDS ORDERED: EPHEDrine (Pressors) 50 MG/ML VIAL ONE (10:20)
[2020-02-10] MEDS ORDERED: Rocuronium 50 mg VIAL 10 mg/ml 5 ml VIAL (50 mg) ONE (10:20)
[2020-02-10] MEDS ORDERED: Propofol 10 MG/ML 20 ML BTL ONE (10:20)
[2020-02-10] MEDS ORDERED: Dexamethasone IV 4 MG/ML VIAL 1 ml VIAL ONE (10:20)
[2020-02-10] MEDS ORDERED: Lidocaine 2% PF 5 ML VIAL ONE (10:20)
[2020-02-10] MEDS ORDERED: Midazolam 5 mg/5 ml VIAL 1 mg/ml 5 ml VIAL (5 mg) ONE (10:21)
[2020-02-10] MEDS ORDERED: Remifentanil 2 MG VIAL ONE ×2 (10:21→15:36)
[2020-02-10] MEDS ORDERED: Propofol 10 mg/ml 100 ML BTL 100 ML ONE (13:12)
[2020-02-10] MEDS ORDERED: Mannitol 25% (12.5 GM) 50 ML 12.5 GM/50 ML VIAL ONE (13:12)
[2020-02-10] MEDS ORDERED: Thrombin 5,000 UNITS 1 APPLIC KIT - topical use - TOPICAL ONE (13:39)
[2020-02-10] MEDS ORDERED: Gelfoam 12-7 ADSORBABL SPONGE ONE (13:39)
[2020-02-10] MEDS ORDERED: Bupivacaine 0.5% SDV PF 30ML VIAL ONE (13:41)
[2020-02-10] MEDS ORDERED: Bacitracin OINTMENT TUBE ONE (13:42)
[2020-02-10] MEDS ORDERED: Bacitracin INJECTION 50,000 UNITS ONE (13:42)
[2020-02-10] MEDS ORDERED: ceFAZolin 1 GM ADVAN 1 GM ADDV.VIAL IVPB ONE (14:52)
[2020-02-10] MEDS ORDERED: Albuterol 2.5mg/3 ml (0.083%) NEB.SOLN INH PRN (17:31)
[2020-02-10] MEDS: fentaNYL 100 mcg/2 ml 50 MCG/ML VIAL IV PRN ×4 (17:36→18:07)
[2020-02-10] MEDS ORDERED: Ondansetron 4 mg VIAL 2 MG/ML 2 ml VIAL IV PRN (17:37)
[2020-02-10] MEDS ORDERED: Naloxone 0.4 mg VIAL 0.4 mg/ml 1 ml VIAL IV PRN (17:37)
[2020-02-10] MEDS ORDERED: ceFAZolin 2 GM PREMIX 2 GM/50 ML BAG IVPB SCH (18:00)
[2020-02-10] MEDS ORDERED: NS 0.9% w/ 20 Meq KCL 1000 ml 1,000 ML IV SCH (18:00)
[2020-02-10] MEDS ORDERED: Acetaminophen IV 1 GM/100ML 100 ML ONE (18:03)
[2020-02-10] MEDS: levETIRAcetam 500 MG IVPREMIX 500 MG/100 ML BAG IV SCH (21:20)
[2020-02-10] MEDS: Ondansetron 4 mg VIAL 2 MG/ML 2 ml VIAL IV PRN (22:08)
[2020-02-10] MEDS: Polyethylene Glycol 3350 17 GM PACKET PO SCH (22:12)
[2020-02-10] MEDS: Morphine 2 MG/ML SYRINGE IV PRN (22:20)
[2020-02-10] MEDS: ceFAZolin 2 GM PREMIX 2 GM/50 ML BAG IVPB SCH (23:13)
[2020-02-11] MEDS: Morphine 2 MG/ML SYRINGE IV PRN (03:14)
[2020-02-11 05:40] LABS: Platelet Count 240 10^3/uL (150-450)
[2020-02-11] MEDS: levETIRAcetam 500 MG IVPREMIX 500 MG/100 ML BAG IV SCH ×2 (05:53→19:53)
[2020-02-11] MEDS: ceFAZolin 2 GM PREMIX 2 GM/50 ML BAG IVPB SCH ×2 (06:43→14:17)
[2020-02-11] MEDS ORDERED: Polyethylene Glycol 3350 17 GM PACKET PO SCH (09:00)
[2020-02-11] MEDS: Erythromycin OPTH OINT APPLIC OINT RIGHT EYE SCH ×3 (09:42→20:08)
[2020-02-11] MEDS: Polyethylene Glycol 3350 17 GM PACKET PO SCH ×2 (09:50→20:07)
[2020-02-11 13:31] LABS: ABS Lymphocytes 1.1 10^3/ul (1.0-4.8); ABS Monocytes 0.9 10^3/ul (0-0.8); ABS Neutrophils 7.1 10^3/ul (1.5-7.7); Eosinophil % 0.3 %; Hematocrit 32 % (35-47); Hemoglobin 10.9 g/dL (12.0-16.0); Lymphocyte % 11.7 %; Mean Corpuscular HGB Conc 34 g/dL (31-36); Mean Corpuscular Hemoglobin 32 pg (27-31); Mean Corpuscular Volume 96 fL (80-97); Mean Platelet Volume 7.6 fL (7.4-10.4); Nucleated Red Blood Cells % 0.1; Platelet Count 249 10^3/uL (150-450); Red Blood Count 3.37 10^6 /uL (3.70-4.87); Red Cell Distribution Width 13 % (10-15); White Blood Count 9.1 10^3/uL (3.5-10.8)
[2020-02-11 13:40] LABS: BUN/Creatinine Ratio 12.9 (8-20); Calcium 9.2 mg/dL (8.6-10.3); EGFR African American 101.6 (>60); Phosphorus 3.4 mg/dL (2.5-5.0); Potassium 4.4 mmol/L (3.5-5.0)
[2020-02-11] MEDS: Artificial Tear OPHTH.OINT 3.5 GM RIGHT EYE PRN (19:38)
[2020-02-12] MEDS: Ondansetron 4 mg VIAL 2 MG/ML 2 ml VIAL IV PRN (01:11)
[2020-02-12] MEDS: Artificial Tear OPHTH.OINT 3.5 GM RIGHT EYE PRN (03:23)
[2020-02-12 05:26] LABS: ABS Eosinophils 0.1 10^3/ul (0-0.6); ABS Lymphocytes 1.1 10^3/ul (1.0-4.8); ABS Monocytes 0.7 10^3/ul (0-0.8); ABS Neutrophils 5.5 10^3/ul (1.5-7.7); Eosinophil % 0.9 %; Hematocrit 32 % (35-47); Hemoglobin 10.8 g/dL (12.0-16.0); Lymphocyte % 14.7 %; Mean Corpuscular HGB Conc 34 g/dL (31-36); Mean Corpuscular Hemoglobin 33 pg (27-31); Mean Corpuscular Volume 95 fL (80-97); Mean Platelet Volume 7.1 fL (7.4-10.4); Platelet Count 233 10^3/uL (150-450); Red Blood Count 3.34 10^6 /uL (3.70-4.87); Red Cell Distribution Width 13 % (10-15); White Blood Count 7.3 10^3/uL (3.5-10.8)
[2020-02-12 05:48] LABS: Calcium 9.4 mg/dL (8.6-10.3); EGFR African American 101.6 (>60); Magnesium 2.2 mg/dL (1.9-2.7)
[2020-02-12] MEDS: levETIRAcetam 500 MG IVPREMIX 500 MG/100 ML BAG IV SCH ×2 (07:36→17:19)
[2020-02-12] MEDS: Polyethylene Glycol 3350 17 GM PACKET PO SCH ×2 (07:37→20:01)
[2020-02-12] MEDS: Erythromycin OPTH OINT APPLIC OINT RIGHT EYE SCH ×3 (07:37→20:02)
[2020-02-12] MEDS: Acetaminop/Codeine 300mg/30mg TAB PO PRN ×4 (10:27→22:02)
[2020-02-12] MEDS ORDERED: Senna TAB 8.6 mg TAB PO PRN (17:47)
[2020-02-13] MEDS: Acetaminop/Codeine 300mg/30mg TAB PO PRN ×2 (01:43→08:43)
[2020-02-13] MEDS: Artificial Tear OPHTH.OINT 3.5 GM RIGHT EYE PRN (01:45)
[2020-02-13 05:15] LABS: ABS Eosinophils 0.1 10^3/ul (0-0.6); ABS Lymphocytes 1.4 10^3/ul (1.0-4.8); ABS Monocytes 0.7 10^3/ul (0-0.8); ABS Neutrophils 4.2 10^3/ul (1.5-7.7); Eosinophil % 2.2 %; Hematocrit 32 % (35-47); Hemoglobin 10.6 g/dL (12.0-16.0); Lymphocyte % 21.9 %; Mean Corpuscular HGB Conc 34 g/dL (31-36); Mean Corpuscular Hemoglobin 32 pg (27-31); Mean Corpuscular Volume 96 fL (80-97); Mean Platelet Volume 7.8 fL (7.4-10.4); Nucleated Red Blood Cells % 0.1; Platelet Count 243 10^3/uL (150-450); Red Blood Count 3.29 10^6 /uL (3.70-4.87); Red Cell Distribution Width 13 % (10-15); White Blood Count 6.4 10^3/uL (3.5-10.8)
[2020-02-13 05:24] LABS: BUN/Creatinine Ratio 24.6 (8-20); Blood Urea Nitrogen 17 mg/dL (6-24); CO2 Carbon Dioxide 26 mmol/L (22-32); Calcium 9.1 mg/dL (8.6-10.3); Chloride 108 mmol/L (101-111); EGFR African American 103.3 (>60); EGFR Non-African American 85.4 (>60); Glucose 101 mg/dL (70-100); Sodium 140 mmol/L (135-145)
[2020-02-13 05:36] LABS: Anion Gap 6 mmol/L (2-11)
[2020-02-13 06:19] LABS: Magnesium 2.1 mg/dL (1.9-2.7)
[2020-02-13] MEDS: Erythromycin OPTH OINT APPLIC OINT RIGHT EYE SCH ×3 (08:43→21:13)
[2020-02-13] MEDS: Polyethylene Glycol 3350 17 GM PACKET PO SCH ×2 (08:43→21:08)
[2020-02-13] MEDS: Magnesium Hydroxide LIQ 30 ML UDC PO PRN (21:10)
[2020-02-14] MEDS: Polyethylene Glycol 3350 17 GM PACKET PO SCH ×2 (09:18→21:41)
[2020-02-14] MEDS: Artificial Tear OPHTH.OINT 3.5 GM RIGHT EYE PRN ×2 (09:18→13:39)
[2020-02-14] MEDS: Erythromycin OPTH OINT APPLIC OINT RIGHT EYE SCH ×3 (09:19→22:01)
[2020-02-14] MEDS: Magnesium Hydroxide LIQ 30 ML UDC PO PRN (09:27)
[2020-02-15 07:55] VITALS: BP 114/62
[2020-02-15] MEDS: Polyethylene Glycol 3350 17 GM PACKET PO SCH (08:48)
[2020-02-15] MEDS: Artificial Tear OPHTH.OINT 3.5 GM RIGHT EYE PRN (08:49)
[2020-02-15] MEDS: Erythromycin OPTH OINT APPLIC OINT RIGHT EYE SCH (08:53)
== END 2020-02-15 09:00 | DRG 25 ==
LOC: ED 17:14 → ICU 21:11 → SSU 02-13 08:36
PROVIDERS: ADMIT Internal Medicine; ATTEND Internal Medicine

== ENCOUNTER 2020-02-15 09:21 | Inpatient (IN) ==
[2020-02-15] MEDS: Erythromycin OPTH OINT APPLIC OINT RIGHT EYE SCH ×2 (15:15→20:00)
[2020-02-15] MEDS: Senna TAB 8.6 mg TAB PO SCH (19:57)
[2020-02-15] MEDS: Magnesium Hydroxide LIQ 30 ML UDC PO PRN (20:22)
[2020-02-16] MEDS: Magnesium Hydroxide LIQ 30 ML UDC PO PRN (05:08)
[2020-02-16] MEDS: Polyethylene Glycol 3350 17 GM PACKET PO SCH (08:23)
[2020-02-16] MEDS: Erythromycin OPTH OINT APPLIC OINT RIGHT EYE SCH ×3 (09:05→20:32)
[2020-02-16] MEDS ORDERED: Sodium Phosphate ADULT ENEMA 133 ML BTL PR PRN (16:05)
[2020-02-16] MEDS: Senna TAB 8.6 mg TAB PO SCH (20:33)
[2020-02-17 04:16] LABS: ABS Eosinophils 0.1 10^3/ul (0-0.6); ABS Lymphocytes 1.3 10^3/ul (1.0-4.8); ABS Monocytes 0.6 10^3/ul (0-0.8); ABS Neutrophils 4.3 10^3/ul (1.5-7.7); Eosinophil % 1.8 %; Hematocrit 29 % (35-47); Hemoglobin 9.8 g/dL (12.0-16.0); Lymphocyte % 20.2 %; Mean Corpuscular HGB Conc 35 g/dL (31-36); Mean Corpuscular Hemoglobin 33 pg (27-31); Mean Corpuscular Volume 95 fL (80-97); Mean Platelet Volume 7.1 fL (7.4-10.4); Nucleated Red Blood Cells % 0.1; Platelet Count 242 10^3/uL (150-450); Red Cell Distribution Width 13 % (10-15); White Blood Count 6.3 10^3/uL (3.5-10.8)
[2020-02-17 04:25] LABS: Albumin 3.5 g/dL (3.2-5.2); Calcium 9.4 mg/dL (8.6-10.3); Potassium 3.9 mmol/L (3.5-5.0); Total Bilirubin 0.4 mg/dL (0.2-1.0)
[2020-02-17 04:31] LABS: Albumin/Globulin Ratio 1.5 (1-3); BUN/Creatinine Ratio 37.3 (8-20); EGFR African American 123.8 (>60); EGFR Non-African American 102.3 (>60); Globulin 2.3 g/dL (2-4); Total Protein 5.8 g/dL (6.4-8.9)
[2020-02-17] MEDS: Polyethylene Glycol 3350 17 GM PACKET PO SCH (07:50)
[2020-02-17] MEDS: Erythromycin OPTH OINT APPLIC OINT RIGHT EYE SCH ×3 (07:53→19:44)
[2020-02-17] MEDS: Senna TAB 8.6 mg TAB PO SCH (19:51)
[2020-02-18] MEDS: Polyethylene Glycol 3350 17 GM PACKET PO SCH (07:43)
[2020-02-18] MEDS: Erythromycin OPTH OINT APPLIC OINT RIGHT EYE SCH ×3 (07:45→19:44)
[2020-02-18] MEDS: Senna TAB 8.6 mg TAB PO SCH (19:50)
[2020-02-19] MEDS: Erythromycin OPTH OINT APPLIC OINT RIGHT EYE SCH ×3 (08:53→21:17)
[2020-02-19] MEDS: Polyethylene Glycol 3350 17 GM PACKET PO SCH (08:55)
[2020-02-19] MEDS: Senna TAB 8.6 mg TAB PO SCH (21:18)
[2020-02-20 07:16] LABS: ABS Eosinophils 0.1 10^3/ul (0-0.6); ABS Lymphocytes 0.9 10^3/ul (1.0-4.8); ABS Monocytes 0.5 10^3/ul (0-0.8); ABS Neutrophils 3.3 10^3/ul (1.5-7.7); Eosinophil % 2.5 %; Hematocrit 30 % (35-47); Lymphocyte % 19.2 %; Mean Corpuscular HGB Conc 34 g/dL (31-36); Mean Corpuscular Hemoglobin 32 pg (27-31); Mean Corpuscular Volume 96 fL (80-97); Mean Platelet Volume 7.1 fL (7.4-10.4); Platelet Count 279 10^3/uL (150-450); Red Cell Distribution Width 13 % (10-15); White Blood Count 4.9 10^3/uL (3.5-10.8)
[2020-02-20] MEDS: Polyethylene Glycol 3350 17 GM PACKET PO SCH (08:30)
[2020-02-20] MEDS: Erythromycin OPTH OINT APPLIC OINT RIGHT EYE SCH ×3 (11:17→21:05)
[2020-02-20] MEDS: Senna TAB 8.6 mg TAB PO SCH ×2 (21:05→21:08)
[2020-02-21] MEDS: Polyethylene Glycol 3350 17 GM PACKET PO SCH (08:53)
[2020-02-21] MEDS: Erythromycin OPTH OINT APPLIC OINT RIGHT EYE SCH ×2 (10:55→15:22)
[2020-02-21] MEDS: Senna TAB 8.6 mg TAB PO SCH (21:05)
[2020-02-22] MEDS: Polyethylene Glycol 3350 17 GM PACKET PO SCH (08:39)
[2020-02-22] MEDS: Senna TAB 8.6 mg TAB PO SCH (20:08)
[2020-02-23] MEDS: Polyethylene Glycol 3350 17 GM PACKET PO SCH (08:45)
[2020-02-23] MEDS: Senna TAB 8.6 mg TAB PO SCH (20:38)
[2020-02-24 04:45] VITALS: BP 101/58
[2020-02-24 04:48] LABS: ABS Basophils 0.1 10^3/ul (0-0.2); ABS Eosinophils 0.1 10^3/ul (0-0.6); ABS Lymphocytes 1.2 10^3/ul (1.0-4.8); ABS Monocytes 0.5 10^3/ul (0-0.8); ABS Neutrophils 3.3 10^3/ul (1.5-7.7); Eosinophil % 2.4 %; Hematocrit 30 % (35-47); Lymphocyte % 24.1 %; Mean Corpuscular HGB Conc 34 g/dL (31-36); Mean Corpuscular Hemoglobin 32 pg (27-31); Mean Corpuscular Volume 96 fL (80-97); Mean Platelet Volume 6.8 fL (7.4-10.4); Platelet Count 318 10^3/uL (150-450); Red Blood Count 3.09 10^6 /uL (3.70-4.87); Red Cell Distribution Width 13 % (10-15); White Blood Count 5.1 10^3/uL (3.5-10.8)
[2020-02-24 05:07] LABS: Albumin 3.5 g/dL (3.2-5.2); Albumin/Globulin Ratio 1.8 (1-3); BUN/Creatinine Ratio 31.6 (8-20); Calcium 9.4 mg/dL (8.6-10.3); EGFR African American 128.8 (>60); EGFR Non-African American 106.4 (>60); Total Bilirubin 0.2 mg/dL (0.2-1.0); Total Protein 5.5 g/dL (6.4-8.9)
[2020-02-24] MEDS: Polyethylene Glycol 3350 17 GM PACKET PO SCH (07:52)
== END 2020-02-24 13:27 | disposition home health service (06) | DRG 949 ==
LOC: PMRU 10:03
PROVIDERS: ADMIT Physical Medicine & Rehabilitation; ATTEND Physical Medicine & Rehabilitation